=== PATIENT | female | born 1970 | race Caucasian/White ===

== ENCOUNTER 2017-10-31 18:16 | Emergency (ER) | payer MEDICAID ==
[~2017-10-31] VITALS: Ht 149.9 cm; Wt 124.0 kg
[2017-10-31 18:18] VITALS: BP 158/87
== END 2017-10-31 18:56 | disposition left against medical advice (07) ==
LOC: ER 18:41
DX: Z53.21 Procedure and treatment not carried out due to patient leaving prior to being seen by health care provider (principal)

== ENCOUNTER 2020-11-29 09:12 | Emergency (ER) | payer MEDICAID ==
[~2020-11-29] VITALS: Ht 152.4 cm; Wt 110.0 kg
[2020-11-29 10:44] VITALS: BP 169/85
== END 2020-11-29 10:43 | disposition home or self-care (01) ==
LOC: ER 09:12
DX: M79.622 Pain in left upper arm (principal); E11.9 Type 2 diabetes mellitus without complications; I10 Essential (primary) hypertension; F41.9 Anxiety disorder, unspecified; Z87.828 Personal history of other (healed) physical injury and trauma
CPT/HCPCS: 99282

== ENCOUNTER 2021-03-14 23:18 | Emergency (ER) | payer MEDICAID ==
[~2021-03-14] VITALS: Ht 165.1 cm; Wt 96.0 kg
[2021-03-15] MEDS ORDERED: LACTATED RINGERS 1,000 ML IV SCH (00:45)
[2021-03-15 00:55] LABS: BASOPHILS % 0.4 % (0.0-2.0); EOSINOPHILS % 2.6 % (0.0-5.0); HEMATOCRIT. 37.5 % (36.0-48.0); HEMOGLOBIN. 12.5 g/dL (12.0-16.0); MEAN CORPUSCULAR HEMOGLOBIN 28.8 pg (28.0-32.0); MEAN CORPUSCULAR VOLUME 86.5 fL (81.0-99.0); MEAN PLATELET VOLUME 8.9 fl (7.4-10.4); PLATELET 245 x1000/uL (130-400); RED BLOOD CELL COUNT 4.33 mill/uL (4.2-5.4); RED CELL DISTRIBUTION WIDTH 12.7 % (11.6-14.6)
[2021-03-15 01:03] LABS: CHLORIDE 106 mEq/L (98-107)
[2021-03-15 01:16] LABS: BETA HYDROXYBUTYRATE 0.4 mMol/L (0.0-0.3)
[2021-03-15] MEDS ORDERED: KETOROLAC 15MG/ML VIAL IV ONE (01:30)
[2021-03-15] MEDS ORDERED: MAGNESIUM/ALUMINUM HYDROXIDE/SIMETHICONE 30ML UDC PO SCH (01:34)
[2021-03-15] MEDS ORDERED: VISCOUS LIDOCAINE 2% 15 ML UDC PO SCH (01:34)
[2021-03-15] MEDS ORDERED: SODIUM CHLORIDE 0.9% 1,000 ML IV ONE (01:45)
[2021-03-15] MEDS ORDERED: INSULIN LISPRO 100 UNITS/ML SUBCUT SCH (01:45)
[2021-03-15] MEDS ORDERED: DOCUSATE SODIUM 100MG CAPSULE PO SCH (03:15)
[2021-03-15] MEDS ORDERED: DOCU-138 MT (03:16)
[2021-03-15 04:40] VITALS: BP 135/85
== END 2021-03-15 04:45 | disposition home or self-care (01) ==
LOC: ER 23:18
DX: E11.65 Type 2 diabetes mellitus with hyperglycemia (principal); K59.00 Constipation, unspecified; I10 Essential (primary) hypertension; Z98.890 Other specified postprocedural states; Z79.4 Long term (current) use of insulin
CPT/HCPCS: 36415; 74176; 80048; 80076; 82010; 82962; 83690; 84484; 85025; 93005; 96372; 96374; 99285; J1815; J1885; Z7610